=== PATIENT | female | born 2000 | race Caucasian/White ===

== ENCOUNTER 2022-06-15 12:09 | Inpatient (IN) | payer MEDICAID ==
[~2022-06-15] VITALS: Ht 162.6 cm; Wt 73.5 kg
[2022-06-15] MEDS ORDERED: METHYLERGONOVINE MALEATE 0.2 MG/ML IM PRN (14:30)
[2022-06-15] MEDS ORDERED: CARBOPROST TROMETHAMINE 250 MCG/ML AMPUL IM PRN (14:30)
[2022-06-15] MEDS ORDERED: MISOPROSTOL 100MCG TABLET VG SCH (14:30)
[2022-06-15] MEDS ORDERED: NALOXONE HCL 0.4 MG/ML 1ML VIAL IM PRN (14:30)
[2022-06-15] MEDS ORDERED: LIDOCAINE HCL 1% 10 MG/ML 10ML VIAL IJ SCH (14:30)
[2022-06-15 15:06] LABS: BASOPHILS % 0.5 % (0.0-2.0); EOSINOPHILS % 1.8 % (0.0-5.0); HEMATOCRIT. 28.2 % (36.0-48.0); HEMOGLOBIN. 9.4 g/dL (12.0-16.0); LYMPHOCYTES % 17.6 % (20.0-50.0); MEAN CORPUSCULAR HEMOGLOBIN 27.2 pg (28.0-32.0); MEAN PLATELET VOLUME 10.2 fl (7.4-10.4); MONOCYTES % 7.1 % (2.0-8.0); PLATELET 146 x1000/uL (130-400); RED BLOOD CELL COUNT 3.44 mill/uL (4.2-5.4); RED CELL DISTRIBUTION WIDTH 14.8 % (11.6-14.6)
[2022-06-15] MEDS: LACTATED RINGERS 1,000 ML IV SCH ×2 (15:06→22:45)
[2022-06-15 15:08] LABS: CLARITY URINE CLEAR (CLEAR); COLOR URINE DARK YELLOW (YELLOW); KETONES URINE 1+ (NEGATIVE); LEUKOCYTE ESTERASE URINE NEGATIVE (NEGATIVE); NITRITE URINE NEGATIVE (NEGATIVE); OCCULT BLOOD URINE NEGATIVE (NEGATIVE); PROTEIN URINE NEGATIVE (NEGATIVE); SPECIFIC GRAVITY URINE 1.026 (1.005-1.030)
[2022-06-15 15:14] LABS: INR 0.9; PARTIAL THROMBOPLASTIN TIME 27.6 sec (23.4-31.0); PROTHROMBIN TIME 10.2 sec (9.6-11.0)
[2022-06-15] MEDS: OXYTOCIN 30 UNITS/500ML NS PMX 500 ML IV SCH (15:24)
[2022-06-15 15:40] LABS: *AMPHETAMINES SCREEN URINE NEGATIVE (NEGATIVE); *BARBITURATES SCREEN URINE NEGATIVE (NEGATIVE); *BENZODIAZEPINES SCREEN URINE NEGATIVE (NEGATIVE); *COCAINE SCREEN URINE NEGATIVE (NEGATIVE); CANNABINOID URINE SCREEN NEGATIVE (NEGATIVE); METHADONE URINE SCREEN NEGATIVE (NEGATIVE); OPIATES URINE SCREEN NEGATIVE (NEGATIVE); PHENCYCLIDINE URINE SCREEN NEGATIVE (NEGATIVE)
[2022-06-15 15:52] LABS: HEPATITIS B SURFACE ANTIGEN NEGATIVE
[2022-06-15] MEDS: BUTORPHANOL TARTRATE 2 MG/ML VIAL IV PRN ×2 (18:40→20:49)
[2022-06-15] MEDS ORDERED: ROPIVACAINE HCL/PF EPIDURAL 200 ML EPI ONE (21:41)
[2022-06-15] MEDS ORDERED: ROPIVACAINE HCL/PF EPIDURAL 200 ML EPI SCH (21:45)
[2022-06-16] MEDS: OXYTOCIN 30 UNITS/500ML NS PMX 500 ML IV SCH (02:50)
[2022-06-16] MEDS ORDERED: LANOLIN OINT 7GM TUBE TOP PRN (03:15)
[2022-06-16] MEDS ORDERED: BENZOCAINE/LANOLIN/ALOE VERA SPRAY TOP PRN (03:15)
[2022-06-16] MEDS ORDERED: GLYCERIN/WITCH HAZEL LEAF MEDICATED PAD TOP PRN (03:15)
[2022-06-16] MEDS ORDERED: ACETAMINOPHEN WITH CODEINE 300/30MG TABLET PO PRN (03:15)
[2022-06-16] MEDS ORDERED: ONDANSETRON HCL 4MG/2ML INJ IM ONE (03:15)
[2022-06-16] MEDS ORDERED: IBUPROFEN 400MG TABLET PO PRN (03:15)
[2022-06-16] MEDS ORDERED: METHYLERGONOVINE MALEATE 0.2 MG/ML IM PRN (03:15)
[2022-06-16] MEDS ORDERED: HEMORRHOIDAL SUPP PR PRN (03:15)
[2022-06-16] MEDS ORDERED: OXYTOCIN 30 UNITS/500ML NS PMX 500 ML IV SCH (03:15)
[2022-06-16] MEDS ORDERED: RHO(D) IMMUNE GLOBULIN 300 MCG/SYR IM PRN (03:15)
[2022-06-16] MEDS ORDERED: BISACODYL 10MG SUPP PR PRN (03:15)
[2022-06-16 05:54] VITALS: BP 111/62
[2022-06-16 08:00] VITALS: BP 92/52
[2022-06-16] MEDS: PRENATAL VIT/FE FUMARATE/FA TABLET PO SCH (08:41)
[2022-06-16] MEDS: MAGNESIUM/ALUMINUM HYDROXIDE/SIMETHICONE 30ML UDC PO SCH ×4 (08:41→20:48)
[2022-06-16] MEDS: SIMETHICONE 80MG TABLET CHEW PO SCH ×4 (08:42→20:48)
[2022-06-16] MEDS: IBUPROFEN 800MG TABLET PO PRN ×2 (14:37→23:29)
[2022-06-16 16:00] VITALS: BP 109/72
[2022-06-16 19:30] VITALS: BP 94/47
[2022-06-16] MEDS ORDERED: DOCUSATE SODIUM 100MG CAPSULE PO SCH (21:00)
[2022-06-17 04:00] VITALS: BP 93/52
[2022-06-17] MEDS ORDERED: FERROUS SULFATE 325MG TABLET PO SCH (07:30)
[2022-06-17] MEDS: SIMETHICONE 80MG TABLET CHEW PO SCH (07:52)
[2022-06-17] MEDS: MAGNESIUM/ALUMINUM HYDROXIDE/SIMETHICONE 30ML UDC PO SCH (07:52)
[2022-06-17] MEDS: PRENATAL VIT/FE FUMARATE/FA TABLET PO SCH (07:52)
[2022-06-17 07:53] LABS: BASOPHILS % 0.5 % (0.0-2.0); EOSINOPHILS % 2.2 % (0.0-5.0); HEMATOCRIT. 24.5 % (36.0-48.0); HEMOGLOBIN. 8.1 g/dL (12.0-16.0); LYMPHOCYTES % 17.6 % (20.0-50.0); MEAN CORPUSCULAR HEMOGLOBIN 27.5 pg (28.0-32.0); MEAN CORPUSCULAR VOLUME 82.8 fL (81.0-99.0); MEAN PLATELET VOLUME 9.6 fl (7.4-10.4); MONOCYTES % 4.3 % (2.0-8.0); NEUTROPHILS % 75.4 % (40.0-76.0); PLATELET 149 x1000/uL (130-400); RED BLOOD CELL COUNT 2.96 mill/uL (4.2-5.4)
[2022-06-17 08:00] VITALS: BP 100/64
[2022-06-17 09:00] VITALS: BP 100/64
[2022-06-17] MEDS: IBUPROFEN 800MG TABLET PO PRN (09:00)
== END 2022-06-17 13:25 | disposition home or self-care (01) | DRG 560 ==
LOC: 8 EST LDRP 12:09 → OBSVTOIN 13:07 → 8EST 06-16 04:53
PROVIDERS: ADMIT Obstetrics & Gynecology; ATTEND Obstetrics & Gynecology
PROC: 10E0XZZ Delivery of Products of Conception, External Approach (ICD-10-PCS; principal; 2022-06-16)
PROC: 0W8NXZZ Division of Female Perineum, External Approach (ICD-10-PCS; 2022-06-16)
PROC: 00HU33Z Insertion of Infusion Device into Spinal Canal, Percutaneous Approach (ICD-10-PCS; 2022-06-16)
PROC: 3E0R3BZ Introduction of Anesthetic Agent into Spinal Canal, Percutaneous Approach (ICD-10-PCS; 2022-06-16)
DX: O36.63X0 Maternal care for excessive fetal growth, third trimester, not applicable or unspecified (principal); Z37.0 Single live birth; O41.03X0 Oligohydramnios, third trimester, not applicable or unspecified; Z20.822 Contact with and (suspected) exposure to COVID-19; O66.0 Obstructed labor due to shoulder dystocia; Z3A.38 38 weeks gestation of pregnancy
CPT/HCPCS: 36415; 76805; 76818; 80305; 81003; 85025; 86592; 86703; 86762; 86850; 86900; 87340; 87426; 99281; G0378; J0595; J2405; J2795; J7120; J2590